=== PATIENT | male | born 1995 | race Caucasian/White ===

== ENCOUNTER 2025-06-10 14:38 | Outpatient (AMB) | payer OTHER, SELFPAY ==
--- NOTE | 2025-06-10 14:44 | A.OFFPC_ITS ---
Vital Signs 06/10/25 15:04 Height 5 ft 8.11 in Weight 241 lb BMI 36.5 BP 114/55 L Respiration 14 Pulse 92 Pulse Source Pulse Oximeter Temp 98.1 F Temp Source Temporal Artery Scan Pulse Oximetry (%) 98 Oxygen Delivery Method Room Air Intake Visit Reasons: Establish Care Vehicle Service Attendant Required: No Accompanied by: Self / Same As Patient Allergies testosterone cypionate Allergy (Mild, Uncoded 06/10/25 15:15) Hives Medication List - Last Reconciled 06/10/25 by Jess Lizama PA-C semaglutide 0.25 mg subcut QWEEK testosterone enanthate 50 mg IM Q4W Tobacco use date assessed: 06/10/25 Dental Screening Dental Screen Date: 06/10/25 Did you have a dental visit in the last 12 months?: No Did you have a dental problem in the last 6 months where you did not have access to dental care?: No HPI Establish Care HPI Details The patient is a 29-year-old born female transitioning to male presenting for a new patient appointment and physical examination, with a request for testosterone management. The patient has a history of hypogonadism, for which he is currently receiving testosterone therapy. He has been using testosterone injections but experienced an allergic reaction to one formulation, resulting in hives and a localized reaction at the injection site. Due to difficulty with self-injection, he previously used Testopel, a testosterone pellet implant, and expressed interest in resuming this method. The patient reports being prediabetic, with an A1c of 5.6%. He has been using semaglutide, obtained privately, to manage his weight, which has fluctuated si gnificantly over time. He has lost 25 pounds recently, reducing his weight from 265 to 240 pounds. The patient has a recurrent rash in the groin area, previously treated with antifungal medication, which resolved temporarily but has since recurred. He was prescribed fluconazole, which provided temporary relief, and is considering further dermatological evaluation. 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 - Family Status: , with a support doni who assists with medical needs. - Weight Management: Actively managing w eight with semaglutide, resulting in a recent weight loss of 25 pounds. [facility] Medical History (Updated 06/10/25 @ 16:26 by Jess Lizama PA-C) Gender identity disorder, unspecified Transsexualism Annual physical exam Prediabetes Fungal rash of torso Class 2 obesity with body mass index (BMI) of 36.0 to 36.9 in adult Long-term current use of testosterone replacement therapy Family History Father No problems noted. Mother No problems noted. Social History Housing: House Alcohol intake: current Alcohol intake frequency: a few times a month Patient Tobacco Use Status: Former Tobacco user e-Cigarette/Vaping Use: Currently Using service: No Current occupational status: employed Cognitive needs: No Hearing needs: No Vision needs: Yes (rx glasses) Questionnaire PHQ-9 Over the last 2 weeks, how often have you been bothered by any of the following problems? 1. Little interest or pleasure in doing things: not at all 2. Feeling down, depressed, or hopeless: not at all 3. Trouble falling or staying asleep, or sleeping too much: not at all 4. Feeling tired or having little energy: not at all 5. Poor appetite or overeating: not at all 6. Feeling bad about yourself - or that you are a failure or have let yourself or your family down: not at all 7. Trouble concentrating on things, such as reading the newspaper or watching television: not at all 8. Moving or speaking so slowly that other people could have noticed. Or the opposite - being so fidgety or restless that you have been moving around a lot more than usual: not at all 9. Thoughts that you would be better off or of hurting yourself in some way: not at all Total score: 0 Depression Screening Interpretation: Negative Depression Screening Done: Yes 00212 - PHQ-9 Billing: Yes Source: Developed by Drs. David Hirsch, Agueda Quiros, Pito Leigh and colleagues, with an educational edie from [email or web address]. Thrive Questionnaire Date Thrive assessed: 06/10/25 I am a: Patient What is your living situation today?: I have a steady place to live Within the past 12 months, did the food you bought not last and you didn't have the money to get more?: Never true Within the past 12 months, did you worry whether your food would run out before you got money to buy more?: Never true Do you have trouble paying for medicines?: No Do you have trouble getting transportation to medical appointments?: No Do you have trouble paying your heating and electricity bill?: No Do you have trouble taking care of your child, family member or friend?: No Do you have trouble with day-to-day activities such as bathing, preparing meals, shopping, managing finances, etc.?: No Are you currently unemployed and looking for a job?: No Are you interested in more education?: No Please select the resources that you would like help with: None THRIVE Score: 0 AUDIT C Alcohol Use Questionnaire (AUDIT-C) 1. How often do you have a drink containing alcohol?: 2-4 times a month 2. How many drinks containing alcohol do you have on a typical day when you are drinking?: 1 or 2 3. How often do you have six or more drinks on one occasion?: Never Total Score: 2 Score Reviewed/Action Taken: No NNEKA-7 AMB Questionnaire NNEKA-7 Date NNEKA - 7 assessed: 06/10/25 Feeling nervous, anxious, or on edge: 0 = Not at all Not being able to stop or control worryin = Not at all Worrying too much about different things: 0 = Not at all Trouble relaxin = Not at all Being so restless that it is hard to sit still: 0 = Not at all Becoming easily annoyed or irritable: 0 = Not at all Feeling afraid as if something awful might happen: 0 = Not at all Total NNEKA-7 score (0-4 normal; 5-9 mild; 10-14 moderate; 15-21 severe): 0 Source: Developed by Drs. David Hirsch, Agueda Quiros, Pito Leigh and colleagues, with an educational edie from [email or web address]. NNEKA-7 Assessment Billing NNEKA-7 Assessment Tool: NNEKA-7 Assessment 92044 Review of Systems Const Details: - Endocrine: Reports recurrent rash in the groin area, previously treated with antifungal medication. - General: Denies unintentional weight loss. All systems reviewed & are unremarkable except as noted in HPI and below Physical exam (Primary Care) Vital Signs: Last Vital Signs Temp 98.1 F 06/10/25 15:04 Pulse 92 06/10/25 15:04 Resp 14 06/10/25 15:04 BP 114/55 L 06/10/25 15:04 Pulse Ox 98 06/10/25 15:04 Oxygen Delivery Method Room Air 06/10/25 15:04 Care Plan Goal for BP management: <140/90 at Goal BMI result Body Mass Index 36.5 BMI Assessment/Plan discussion: High BMI High, discussed plan: lifestyle, weight reduction, dietary, physical activity, alcohol moderation and other Tobacco/Smoking Status: Tobacco use Status Tobacco use date assessed 06/10/25 06/10/25 14:48 Patient Tobacco Use Status Former Tobacco user 06/10/25 15:10 e-Cigarette/Vaping Use Currently Using 06/10/25 15:10 PHQ-9: PHQ-9 Score PHQ-9: Total score 0 06/10/25 15:16 Depression Screening Interpretation: Negative Thrive Assessment: Date of Thrive Assessment Date Thrive assessed 06/10/25 06/10/25 14:48 Const Other: Appearance: Alert. Oriented X3. No acute distress. Head: Normal external exam. Normocephalic. Atraumatic. Eyes: Pupils are equal, round, and reactive to light. Extraocular movements intact. Conjunctiva and sclera normal. Eyelids normal. Ears: External auditory canal normal. Tympanic membranes normal. Throat: Pharynx normal. Uvula midline. Moist mucous membranes. Neck: Normal inspection. Neck supple. Full range of motion. No adenopathy. Thyroid Normal. No meningeal signs. No neck mass noted. Cardiovascular: Normal heart rate and rhythm. Heart sound normal. No murmurs noted. Pulses normal throughout. Respiratory: No respiratory distress. Painless inspiration. Breath sounds normal. No wheezes/rales/rhonchi noted. Chest nontender. No accessory muscle usage noted or decreased air movement noted. Abdomen: Soft and nontender. Bowel sounds normal in all 4 quadrants. No distention noted. No organomegaly noted. No visible injury noted. Back: No costovertebral angle tenderness. Full range of motion noted. Skin: Skin warm and dry. Normal skin color. Normal skin turgor. Fungal rash noted to genital area. No additional rashes/lesions/lacerations noted. Extremities: No lower extremity edema. Extremities exhibit normal range of motion. Extremities nontender. Neuro: Oriented X 3. No motor deficit. No sensory deficit. Reflexes normal. Results AMB Hemoglobin A1c AMB Hemoglobin A1c 5.6 % Last Edit by OMAR Worley on 06/10/25 15:52 Results Reviewed Results Reviewed: - Labs: A1c 5.6%, indicating prediabetes. Coding Level of Care Code New Pt Level 4 (64419) New Pt Prev Care 18-39yr(99916 Diagnoses Annual physical exam Z00.00 Transsexualism F64.0 Gender identity disorder, unspecified F64.9 Prediabetes R73.03 Fungal rash of torso B36.9 Additional Codes PHQ-9 - 00329 - PHQ-9 Billing: Yes ([id number]) NNEKA-7 Assessment Billing - NNEKA-7 Assessment Tool: NNEKA-7 Assessment 75184 ([id number]) Time Spent (min) 50 Assessment & Plan Assessment & Plan (1) Annual physical exam: Code(s): Z00.00 - Encounter for general adult medical examination without abnormal findings Category: Medical (2) Transsexualism: Code(s): F64.0 - Transsexualism Category: Medical Plan: The patient will continue testosterone therapy, with a referral to urology for consideration of Testopel implantation due to difficulty with self-injection and previous allergic reactions to certain formulations. (3) Gender identity disorder, unspecified: Code(s): F64.9 - Gender identity disorder, unspecified Category: Medical Plan: The patient will continue testosterone therapy, with a referral to urology for consideration of Testopel implantation due to difficulty with self-injection and previous allergic reactions to certain formulations. (4) Prediabetes: Code(s): R73.03 - Prediabetes Category: Medical Plan: The patient will undergo further blood work to monitor glucose levels and assess the need for potential adjustments in management, including the use of semaglutide if insurance coverage is obtained. (5) Fungal rash of torso: Code(s): B36.9 - Superficial mycosis, unspecified Category: Medical Plan: The patient will receive a prescription for fluconazole and topical clotrimazole, with a referral to dermatology for further evaluation if symptoms persist. Plan Plan Patient was informed and verbally consented to the use of an ambient scribe for clinic note documentation during this visit. 1. Hypogonadism due to patient transition from female to male The patient will continue testosterone therapy, with a referral to urology for consideration of Testopel implantation due to difficulty with self-injection and previous allergic reactions to certain formulations. 2. Prediabetes The patient will undergo further blood work to monitor glucose levels and assess the need for potential adjustments in management, including the use of semaglutide if insurance coverage is obtained. 3. Recurrent Tinea Cruris The patient will receive a prescription for fluconazole and topical clotrimazole, with a referral to dermatology for further evaluation if symptoms persist. During the visit, we discussed the management of hypogonadism, including the continuation of testosterone therapy and the potential use of Testopel implants due to the patient's difficulty with self-injection and previous allergic reactions. We also addressed the patient's prediabetes, with plans for further blood work to monitor glucose levels and explore the possibility of semaglutide use if insurance coverage is obtained. For the recurrent tinea cruris, we discussed prescribing fluconazole and topical clotrimazole, with a referral to dermatology if symptoms persist. Orders: Orders C Reactive Protein Today Z00.00 - Encounter for general adult medical examination without abnormal findings Complete Blood Count Auto Diff Today Z00.00 - Encounter for general adult medical examination without abnormal findings Magnesium Today Z00.00 - Encounter for general adult medical examination without abnormal findings DHEA Sulfate Today Z00.00 - Encounter for general adult medical examination without abnormal findings Dihydrotestosterone Today Z00.00 - Encounter for general adult medical examination without abnormal findings Vitamin B12 and Folate Today Z00.00 - Encounter for general adult medical examination without abnormal findings Vitamin D 25-OH Total Today Z00.00 - Encounter for general adult medical examination without abnormal findings TSH reflex Free T4 Today Z00.00 - Encounter for general adult medical exam ination without abnormal findings Testosterone, Free/Total Today Z00.00 - Encounter for general adult medical examination without abnormal findings Comprehensive [place]. Panel Fast Today Z00.00 - Encounter for general adult medical examination without abnormal findings Hemoglobin A1c Today Z00.00 - Encounter for general adult medical examination without abnormal findings Lipid Panel Today Z00.00 - Encounter for general adult medical examination without abnormal findings Liver Panel Today Z00.00 - Encounter for general adult medical examination without abnormal findings AMB Hemoglobin A1c Today Z13.9 - Encounter for screening, unspecified Referrals Dermatology Referral B36.9 - Superficial mycosis, unspecified Urology Referral Z79.890 - Hormone replacement therapy Medications: New clotrimazole 1% 1 appl topical BID 56.7 grams 6RF 8 weeks clotrimazole 2% (Clotrimazole-3) 1 appful vaginal BEDTIME 21 grams 6RF 3 days testosterone enanthate 60 mg (0.3 mL) IM QWEEK 5 mL 5RF semaglutide for 4 weeks 0.25 mg (0.368 mL) subcut QWEEK 3 mL 0RF E66.812 - Obesity, class 2, R73.03 - Prediabetes, Z68.36 - Body mass index [BMI] 36.0-36.9, adult fluconazole 150 mg PO Q3D 5 tabs 3RF 14 days Patient Instructions: - Continue testosterone therapy as prescribed. - Schedule an appointment with urology for Testopel implantation consideration. - Follow up with blood work to monitor glucose levels. - Use prescribed fluconazole and topical clotrimazole for the groin rash. - Contact dermatology for further evaluation if rash persists.
[2025-06-10 15:04] VITALS: BP 114/55; PULSE 92; RESP 14; TEMP 36.7; O2SAT 98; BMI 36.5
== END 2025-06-10 15:44 | disposition home or self-care (01) ==
PROVIDERS: PCP Physician Assistant Medical; Visit Provider Physician Assistant Medical
DX: Z00.00 Encounter for general adult medical examination without abnormal findings (principal); R73.03 Prediabetes; F64.0 Transsexualism; F64.9 Gender identity disorder, unspecified; B36.9 Superficial mycosis, unspecified

== ENCOUNTER → 2025-06-10 14:38 | Outpatient (BNVA) | payer OTHER, SELFPAY | PROVIDERS: PCP Physician Assistant Medical; Visit Provider Physician Assistant Medical | DX: Z00.00 Encounter for general adult medical examination without abnormal findings (principal); E29.1 Testicular hypofunction; R73.03 Prediabetes; F64.0 Transsexualism; B36.9 Superficial mycosis, unspecified; B35.6 Tinea cruris; E66.812 Obesity, class 2; Z68.36 Body mass index [BMI] 36.0-36.9, adult | CPT/HCPCS: 83036; 96127 ==